=== PATIENT | male | born 1980 | race Caucasian/White ===

== ENCOUNTER → 2016-10-17 | Outpatient (CLI) | payer OTHER, MEDICAID ==
--- NOTE | 2016-10-17 16:03 | DX ---
Left great toe, 3 views. HISTORY: Pain. FINDINGS: There is a minimally displaced fracture involving the medial aspect of the proximal phalanx of the left great toe at the interphalangeal joint level, best visualized on the AP view, with intra -articular extension. Joint spaces are maintained. There is a sessile osteoma arising from the base of the distal phalanx o f the left great toe. Bipartite tibial sesamoid incidentally identified. IMPRESSION: 1. Minimally displaced fracture, proximal phalanx left great toe at the interphalangeal joint level. 2. 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 3. Bipartite tibial sesamoid.
== END ==
LOC: BMCIMAGING 14:58
PROVIDERS: ATTEND Internal Medicine
DX: S92.412A Displaced fracture of proximal phalanx of left great toe, initial encounter for closed fracture (principal); D36.7 Benign neoplasm of other specified sites